=== PATIENT | female | born 1935 | race Caucasian/White ===

== ENCOUNTER 2016-04-24 00:10 | Inpatient (IN) | payer MEDICARE, BC ==
[~2016-04-24] VITALS: Ht 167.6 cm; Wt 43.7 kg
[2016-04-24] VITALS (27 sets, daily range): BP systolic 78–227; BP diastolic 46–128; PULSE 71–147; RESP 14–22; TEMP 97.8–98.2; O2SAT 95–100
[2016-04-24] MEDS ORDERED: SODIUM CHLOR 0.9% 1000 ML INJ 1,000 ML IV ONE ×3 (00:19→06:15)
--- NOTE | 2016-04-24 00:32 | PD ---
HPI Chief Complaint: Altered Mental Status Time Seen by Provider: 00:19 Travel History International Travel<30 days: No Contact w/Intl Traveler<30days: No Traveled to known affect area: No History of Present Illness HPI The patient is a 81-year-old female who presents to the emergency department with family for possible stroke. The patient to sleep at 8:30 PM, was normal per family. However, the patient awakened at 11:45 PM it was noted to have "babbling speech ", weakness on the right side, difficulty ambulating, with apparent difficulty in understanding as well. The patient does have a history of TIAs but only takes an aspirin per day. Upon arrival the patient is unable to speak, will follow some simple commands, but is unable to tell me her name, date of , or current location. She will follow commands, has obvious facial droop on the right with drift of the right upper extremity and right lower extremity. She was unable to answer questions correctly. Stroke scale was 12. Patient is not a candidate for IV TPA in the 3 hour window and will not be a candidate for TPA and afford a half hour window secondary to 5 hour timeframe, however, may be a candidate for interventional radiology at the 6 hour window. Therefore, stroke alert was called. 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) : 5 Para: 5 Past Surgical History Cholecystectomy: Yes Gynecologic Surgery: Yes (partial hysterectomy) Oral Surgery: Yes (maligancy removed from face) Other Surgery: Yes (right carotid endarectomy) Social History Alcohol Use: No Tobacco Use: No Substance Use: No Allergies-Medications (Allergen,Severity, Reaction): Coded Allergies: Cardizem (Verified Allergy, Severe, 03/01/16) Ceftin (Verified Allergy, Severe, Rash, 03/01/16) Tequin (Verified Allergy, Severe, 04/24/16) Codeine (Verified Allergy, Intermediate, Rash, 03/01/16) Lasix (Verified Allergy, Intermediate, Rash, 03/01/16) Librium (Verified Allergy, Intermediate, Rash, 03/01/16) Lomotil (Verified Allergy, Intermediate, Rash, 03/01/16) Norvasc (Verified Allergy, Intermediate, Rash, 03/01/16) Persantine (Verified Allergy, Intermediate, Rash, 03/01/16) Stadol (Verified Allergy, Intermediate, Rash, 03/01/16) Sulfa (Verified Allergy, Intermediate, Rash, 03/01/16) Zithromax (Verified Allergy, Intermediate, Rash, 03/01/16) Augmentin (Verified Allergy, Unknown, Rash, 03/01/16) Cardura (Verified Allergy, Unknown, Rash, 03/01/16) Pravachol (Verified Allergy, Unknown, Rash, 03/01/16) Reported Meds & Prescriptions Reported Meds & Active Scripts Active No Active Prescriptions or Reported Medications Review of Systems ROS Limitations: Clinical Condition, Other: (history obtained from family) Neurologic: Positive: Focal Abnormalities, Change in Mentation, Slurred Speech Physical Exam Narrative GENERAL: Awake, alert, 81-year-old female who is unable to tell me her name or date of . SKIN: Warm and dry. HEAD: Atraumatic. Normocephalic. EYES: Pupils equal and round. Pupils are 3 mm bilateral and reactive. EOMs are intact. ENT: No nasal bleeding or discharge. Mucous membranes pink and moist. NECK: Trachea midline. No JVD. CARDIOVASCULAR: Regular rate and rhythm. No murmur appreciated. RESPIRATORY: No accessory muscle use. Clear to auscultation. Breath sounds equal bilaterally. GASTROINTESTINAL: Abdomen soft, non-tender, nondistended. No rebound tenderness. MUSCULOSKELETAL: No obvious deformities. No clubbing. No cyanosis. No edema. NEUROLOGICAL: Awake and alert. Facial droop to the right with smiling. Drift of the right upper extremity and right lower extremity, arm falls to bed and leg falls to bed. Patient is mostly aphasic except for saying yes, at times appears to have receptive aphasia. Sensation appears to be symmetric bilaterally to soft touch on the face, arms, and legs. PSYCHIATRIC: Unable to assess. Data Data Last Documented VS Vital Signs Date Time Temp Pulse Resp B/P Pulse Ox O2 Delivery O2 Flow Rate FiO2 04/24/16 01:11 96 18 138/62 97 Room Air 04/24/16 00:16 97.8 Orders Diet Npo (04/24/16 Breakfast) Activity Bed Rest (04/24/16 ) Electrocardiogram (04/24/16 ) I-Stat Creatinine (04/24/16 00:19) I-Stat Profile (04/24/16 00:19) Prothrombin Time / Inr (Pt) (04/24/16 00:19) Act Partial Throm Time (Ptt) (04/24/16 00:19) Complete Blood Count With Diff (04/24/16 00:19) Fibrinogen (04/24/16 00:19) Creatine Kinase (Cpk) (04/24/16 00:19) Troponin I (04/24/16 00:19) Ua Includes Microscopic (04/24/16 00:19) Drug Screen, Random Urine (04/24/16 00:19) Type And Screen (04/24/16 00:19) Ct Brain W/O Iv Contrast(Rout) (04/24/16 ) Consult Neurology (04/24/16 ) Blood Glucose (04/24/16 00:19) Ecg Monitoring (04/24/16 00:19) Neuro Checks Q2HX12,Q4H (04/24/16 00:19) Nursing Bedside Swallow Assess .ONCE (04/24/16 00:19) Iv Access Insert/Monitor (04/24/16 00:19) NPO (04/24/16 00:19) Oximetry (04/24/16 00:19) Oxygen Administration (04/24/16 00:19) Sodium Chlor 0.9% 1000 Ml Inj (Ns 1000 M (04/24/16 00:19) Resp Oxygen Mario C Titrat 1-4 L (04/24/16 00:19) Cath For Specimen (04/24/16 00:19) Cta Brain W Iv Contrast W 3d (04/24/16 ) Cta Neck W Iv Contrast W 3d (04/24/16 ) Lorazepam Inj (Ativan Inj) (04/24/16 00:33) (Hub Use Only)Inp Phy Cons/Ref (04/24/16 ) Iohexol 350 Inj (Omnipaque 350 Inj) (04/24/16 00:44) Diltiazem Inj (Cardizem Inj) (04/24/16 00:51) Metoprolol Tartrate Inj (Lopressor Inj) (04/24/16 01:00) Esmolol Drip Inj Premix (Brevibloc Drip (04/24/16 01:00) Aspirin Supp (Aspirin Supp) (04/24/16 01:15) Labs Laboratory Tests Test 04/24/16 04/24/16 00:02 00:22 White Blood Count 7.1 TH/MM3 Red Blood Count 4.24 MIL/MM3 Hemoglobin 12.8 GM/DL Hematocrit 38.6 % Mean Corpuscular Volume 91.1 FL Mean Corpuscular Hemoglobin 30.3 PG Mean Corpuscular Hemoglobin 33.2 % Concent Red Cell Distribution Width 13.2 % Platelet Count 327 TH/MM3 Mean Platelet Volume 7.2 FL Neutrophils (%) (Auto) 51.7 % Lymphocytes (%) (Auto) 39.2 % Monocytes (%) (Auto) 6.9 % Eosinophils (%) (Auto) 1.3 % Basophils (%) (Auto) 0.9 % Neutrophils # (Auto) 3.7 TH/MM3 Lymphocytes # (Auto) 2.8 TH/MM3 Monocytes # (Auto) 0.5 TH/MM3 Eosinophils # (Auto) 0.1 TH/MM3 Basophils # (Auto) 0.1 TH/MM3 CBC Comment DIFF FINAL Differential Comment Prothrombin Time 10.0 SEC Prothromb Time International 0.9 RATIO Ratio Activated Partial 25.3 SEC Thromboplast Time Fibrinogen 385 mg/dL Bedside Hemoglobin 14.3 G/DL Bedside Hematocrit 42.0 % Bedside Sodium 137 MMOL/L Bedside Potassium 3.8 MMOL/L Bedside Chloride 95 MMOL/L Bedside Blood Urea Nitrogen 5 MG/DL Bedside Creatinine 0.8 MG/DL Bedside Glucose 168 MG/DL Total Creatine Kinase 59 U/L Troponin I LESS THAN 0.02 NG/ML [facility] Medical Screen Exam Complete: Yes Emergency Medical Condition: Yes Medical Record Reviewed: Yes Differential Diagnosis Differential diagnosis includes CVA, TIA, intracranial hemorrhage, encephalitis , delirium, UTI, hyponatremia. Narrative Course Stroke alert was called. IV was established, labs are drawn and sent, and the patient was placed on gas engine performance engineer monitoring and continuous pulse oximetry monitoring. I discussed the patient with Dr. Hamilton, the on-call neurologist, who agrees the patient is not a candidate for TPA Jessie douglass, but it may be a candidate for IR. Therefore, CTA of the neck and brain were obtained. CT the brain was negative, therefore, patient was administered aspirin. Patient also had a chief ablation with RVR, rate in the 140s, therefore, patient was administered Lopressor because she was allergic to Cardizem and placed on an esmolol drip. CTA of the head and neck were noted, do not believe patient is a candidate for acute interventional radiology evaluation. The patient did have a run of atrial fibrillation with RVR in the emergency department, A. fib may be a cause of the patient's CVA. I had a discussion with the neurologist, Dr. Hamilton, in regards to possible heparin drip. He would prefer to wait for echocardiogram prior to place the patient on heparin or further anticoagulation. The patient will be admitted to the medical service, will go to [facility] on an esmolol drip. Critical Care Narrative Aggregate critical care time was 20 minutes. Time to perform other separately billable procedures was not included in the critical care time. My time did not include minutes spent treating any other patients simultaneously or on activities that did not directly contribute to the patient's treatment. The services I provided to this patient were to treat and/or prevent clinically significant deterioration that could result in: Anoxia, hypoxia, arrhythmia, aspiration, . I provided critical care services requiring my management, as noted below: Chart data review, documentation time, medication orders and management, vital sign assessments/reviewing monitor data, ordering and reviewing lab tests, ordering and interpreting/reviewing x-rays and diagnostic studies, care of the patient and discussion of the patient with the admitting physicians. Stroke Alert NIHSS NIH Stroke Scale Result: 12 NIHSS Time Completed: 00:16 Thrombolytic Contraindications Contraindications Comment: Patient is not a candidate for initial TPA as the window is 3 hours and 4/2 hours, patient presents just over 4/2 hours from last seen normal. However, possibly candidate for IR intervention, therefore, stroke alert was called. CTA, no indication for IR. Patient was provided aspirin. Procedures Interpretation(s) I-STAT reveals sodium 137, potassium 3.8, chloride 95, BUN 5, glucose 168, hemoglobin 14.3, hematocrit 42%, creatinine 0.8 EKG reveals atrial fibrillation with RVR, rate 146. CTA carotids reveals 50% stenosis at the origin of the left common carotid artery from the arch. Not mentioned above his multinodular goiter with largest nodule on the right measuring 1.3 cm in size. CTA of the head reveals slight atherosclerotic changes of distal branches bilaterally, otherwise unremarkable. Laboratory Tests Test 04/24/16 04/24/16 00:02 00:22 White Blood Count 7.1 TH/MM3 Red Blood Count 4.24 MIL/MM3 Hemoglobin 12.8 GM/DL Hematocrit 38.6 % Mean Corpuscular Volume 91.1 FL Mean Corpuscular Hemoglobin 30.3 PG Mean Corpuscular Hemoglobin 33.2 % Concent Red Cell Distribution Width 13.2 % Platelet Count 327 TH/MM3 Mean Platelet Volume 7.2 FL Neutrophils (%) (Auto) 51.7 % Lymphocytes (%) (Auto) 39.2 % Monocytes (%) (Auto) 6.9 % Eosinophils (%) (Auto) 1.3 % Basophils (%) (Auto) 0.9 % Neutrophils # (Auto) 3.7 TH/MM3 Lymphocytes # (Auto) 2.8 TH/MM3 Monocytes # (Auto) 0.5 TH/MM3 Eosinophils # (Auto) 0.1 TH/MM3 Basophils # (Auto) 0.1 TH/MM3 CBC Comment DIFF FINAL Differential Comment Prothrombin Time 10.0 SEC Prothromb Time International 0.9 RATIO Ratio Activated Partial 25.3 SEC Thromboplast Time Fibrinogen 385 mg/dL Bedside Hemoglobin 14.3 G/DL Bedside Hematocrit 42.0 % Bedside Sodium 137 MMOL/L Bedside Potassium 3.8 MMOL/L Bedside Chloride 95 MMOL/L Bedside Blood Urea Nitrogen 5 MG/DL Bedside Creatinine 0.8 MG/DL Bedside Glucose 168 MG/DL Total Creatine Kinase 59 U/L Troponin I LESS THAN 0.02 NG/ML Last Impressions Head CTA 04/24/16 0000 Signed Impressions: Service Date/Time: Sunday, April 24, 2016 00:33 - CONCLUSION: Slight atherosclerotic changes of distal branches bilaterally, otherwise unremarkable. Avni Hurst MD Head CT 04/24/16 0000 Signed Impressions: Service Date/Time: Sunday, April 24, 2016 00:22 - CONCLUSION: 1. No change in right posterior fossa CPA mass possibly a large meningioma. 2. Chronic and small vessel ischemic changes without any evidence for acute hemorrhage or mass effect. Avni Hurst MD Physician Communication Physician Communication The on-call medical service was paged for admission. I discussed the patient with Dr. Vidal who agrees with admission. Diagnosis Diagnosis: Primary Impression: CVA (cerebral vascular accident) Qualified Code: I63.9 - Cerebrovascular accident (CVA), unspecified mechanism Additional Impression: Atrial fibrillation with RVR Admitting Physician Requests: Admit Scripts No Active Prescriptions or Reported Meds Condition: Stable Mike August MD Apr 24, 2016 00:31
[2016-04-24] MEDS ORDERED: LORazepam 2 MG/ML VIAL ONE (00:33)
[2016-04-24 00:39] LABS: I-STAT SODIUM 137 MMOL/L (138-146)
--- NOTE | 2016-04-24 00:39 | RADRPT ---
EXAM DATE/TIME: 04/24/2016 00:22 [facility] COMPARISON: CT BRAIN W/O CONTRAST, March 01, 2016, 7:35. INDICATIONS : Stroke alert; right sided weakness and slurred speech. RADIATION DOSE: 56.35 CTDIvol (mGy) This report was called by myself to Dr. Monroe at 12: 35 hours. MEDICAL HISTORY : Non-responsive. SURGICAL HISTORY : Non-responsive. ENCOUNTER: Initial ACUITY: 1 day PAIN SCALE: Non-responsive LOCATION: cranial TECHNIQUE: Multiple contiguous axial images were obtained of the head. Using automated exposure control and adj ustment of the mA and/or kV according to patient size, radiation dose was kept as low as reasonably a chievable to obtain optimal diagnostic quality images. FINDINGS: Again noted is a mass in the right CP angle measuring almost 3.3 cm in size with slight mass effect o n the fourth ventricle not changed. There is chronic mucoperiosteal thickening within the right maxil kady sinus. The visualized bony structures appear intact. Moderate degree of brain atrophy is seen. Moderate periventricular white matter changes are seen nonspecific mostly consistent with chronic sma ll vessel ischemic changes. There are no signs of acute infarction for technique. CONCLUSION: 1. No change in right posterior fossa CPA mass possibly a large meningioma. 2. Chronic and small vessel ischemic changes without any evidence for acute hemorrhage or mass effect . Avni Hurst MD on April 24, 2016 at 0:33 Board Certified Radiologist. This report was verified electronically.
[2016-04-24 00:40] LABS: I-STAT POTASSIUM 3.8 MMOL/L (3.5-4.9)
[2016-04-24 00:41] LABS: AUTOMATED NEUTROPHIL # 3.7 TH/MM3 (1.8-7.7); BASOPHIL # 0.1 TH/MM3 (0-0.2); BASOPHIL % 0.9 % (0.0-2.0); EOSINOPHIL # 0.1 TH/MM3 (0-0.4); EOSINOPHIL % 1.3 % (0.0-4.0); HEMATOCRIT 38.6 % (35.0-46.0); HEMO FLAGS DIFF FINAL; LYMPH % 39.2 % (9.0-44.0); LYMPHOCYTE # 2.8 TH/MM3 (1.0-4.8); MEAN CELL VOLUME 91.1 FL (80.0-100.0); MEAN CORPUSCULAR HEMOGLOBIN 30.3 PG (27.0-34.0); MEAN CORPUSCULAR HGB CONC 33.2 % (32.0-36.0); MONO % 6.9 % (0.0-8.0); NEUT % 51.7 % (16.0-70.0); PLATELET COUNT 327 TH/MM3 (150-450); RED BLOOD COUNT 4.24 MIL/MM3 (4.00-5.30); RED CELL DISTRIBUTION WIDTH 13.2 % (11.6-17.2); WHITE BLOOD COUNT 7.1 TH/MM3 (4.0-11.0)
[2016-04-24] MEDS ORDERED: IOHEXOL 350 MG/ML 10 ML VIAL (for RAD DIAG) IV ONE (00:44)
[2016-04-24 00:47] LABS: APTT (PATIENT) 25.3 SEC (24.3-30.1); INTERNATIONAL NORMALIZED RATIO 0.9 RATIO
[2016-04-24] MEDS ORDERED: DILTIAZEM HCL 25 MG/5 ML VIAL ONE (00:51)
[2016-04-24 01:00] LABS: CREATINE KINASE 59 U/L (26-192)
[2016-04-24] MEDS ORDERED: METOPROLOL TARTRATE 5 MG/5 ML VIAL IV PUSH ONE (01:00)
[2016-04-24] MEDS ORDERED: ESMOLOL DRIP INJ PREMIX 250 ML IV SCH (01:00)
--- NOTE | 2016-04-24 01:10 | RADRPT ---
EXAM DATE/TIME: 04/24/2016 00:33 [facility] COMPARISON: CT BRAIN W/O CONTRAST, April 24, 2016, 0:22. INDICATIONS : Stroke alert, right sided weakness and slurred speech. IV CONTRAST: 67 cc Omnipaque 350 (iohexol) IV ; Cumulative dose for multiple exams. RADIATION DOSE: 14.49 CTDIvol (mGy) ; Combined studies MEDICAL HISTORY : Non-responsive. SURGICAL HISTORY : Non-responsive. ENCOUNTER: Initial ACUITY: 1 day PAIN SCALE: Non-responsive LOCATION: cranial TECHNIQUE: Volumetric scanning was performed using a multi-row detector CT scanner. The data was post processed with a variety of visualization algorithms including full volume maximum intensity projection, multi -planar sliding thin slab reformation, curved planar reformation, and surface rendering techniques. Using automated exposure control and adjustment of the mA and/or kV according to patient size, radiat ion dose was kept as low as reasonably achievable to obtain optimal diagnostic quality images. FINDINGS: No significant vascular malformations, vessel truncation or aneurysmal dilatations are seen except fo r slight atherosclerotic changes involving multiple branches bilaterally mainly the MCAs. CONCLUSION: Slight atherosclerotic changes of distal branches bilaterally, otherwise unremarkable . Avni Hurst MD on April 24, 2016 at 1:06 Board Certified Radiologist. This report was verified electronically.
--- NOTE | 2016-04-24 01:12 | RADRPT ---
EXAM DATE/TIME: 04/24/2016 00:33 [facility] COMPARISON: CTA BRAIN W 3D RECON, April 24, 2016, 0:33. CT BRAIN W/O CONTRAST, April 24, 2016, 0:22. INDICATIONS : Stroke alert, right sided weakness and slurred speech. IV CONTRAST: 67 cc Omnipaque 350 (iohexol) IV ; Cumulative dose for multiple exams. RADIATION DOSE: 14.49 CTDIvol (mGy) ; Combined studies MEDICAL HISTORY : Non-responsive. SURGICAL HISTORY : Non-responsive. ENCOUNTER: Initial ACUITY: 1 day PAIN SCALE: Non-responsive LOCATION: neck TECHNIQUE: Volumetric scanning was performed using a multirow detector CT scanner. The data was post processed with a variety of visualization algorithms including full-volume maximum intensity projection, multip lanar sliding thin-slab reformation, curved-planar reformation, and surface-rendering techniques. Us ing automated exposure control and adjustment of the mA and/or kV according to patient size, radiatio n dose was kept as low as reasonably achievable to obtain optimal diagnostic quality images. FINDINGS: AORTIC ARCH: There is approximate 50% stenosis at the origin of the left common carotid artery from the arch. The other major vessels are patent. RIGHT CAROTID: There is mild atherosclerotic plaquing without any significant stenosis. LEFT CAROTID: There is mild atherosclerotic plaquing without any significant stenosis. VERTEBRALS: The vertebral arteries have a symmetric diameter. No stenotic lesions are seen. CONCLUSION: 50% stenosis at the origin of the left common carotid artery from the arch. Not mentioned above is mu ltinodular goiter with largest nodule on the right measuring 1.3 cm in size. Avni Hurst MD on April 24, 2016 at 1:09 Board Certified Radiologist. This report was verified electronically.
[2016-04-24] MEDS ORDERED: ASPIRIN 300 MG SUPP RECTAL ONE (01:15)
[2016-04-24 01:45] LABS: BLOOD, URINE NEG (NEG); GLUCOSE,URINE NEG (NEG); KETONE, URINE NEG (NEG); NITRITE,URINE NEG (NEG); SQUAMOUS EPITHELIAL CELL URINE <1 /hpf (0-5); URINE COLOR YELLOW (YELLW/STRAW)
[2016-04-24 01:51] LABS: AMPHETAMINE, URINE NEG (NEG); BARBITURATES, URINE NEG (NEG); COCAINE, URINE NEG (NEG)
[2016-04-24] MEDS ORDERED: methylPREDNISolone SOD SUCC 125 MG/2 ML VIAL ONE (02:01)
[2016-04-24] MEDS ORDERED: EPINEPHrine HCL (1:10,000) 1 MG/10 ML SYRINGE ONE (02:01)
[2016-04-24] MEDS ORDERED: diphenhydrAMINE HCL 50 MG/ML VIAL ONE (02:01)
[2016-04-24] MEDS ORDERED: EPINEPHrine HCL (1:1000) 1 MG/ML VIAL ONE (02:02)
[2016-04-24] MEDS ORDERED: SODIUM CHLOR 0.9% 1000 ML INJ 1,000 ML IV SCH ×3 (02:38→09:00)
--- NOTE | 2016-04-24 02:38 | HHI.HP ---
[facility] Service [facility] Primary Care Physician Veto Ruth M.D. Admission Diagnosis CVA, atrial fibrillation with RVR, aphasia Diagnoses: Chief Complaint: Aphasia. RIght sided weakness Travel History International Travel<30 Days: No Contact w/Intl Traveler <30 Da: No Traveled to Known Affected Are: No History of Present Illness 81-year-old female brought into the emergency room with concern for stroke. The patient's son report that she woke up with babbling speech, weakness on the right side and difficulty ambulating. On arrival to the emergency room the patient has obvious facial droop, expressive aphasia, right upper and lower extremity drift, unable to answer questions. Patient was given metoprolol and Ativan. I was notified by the nurse that she was having allergic reaction with tongue swelling. She was immediately given Solu-Medrol and Benadryl. On my evaluation, the patient is aphasic, she does not follow commands and appears agitated, able to move the left extremities more so than the right. She has mild tongue swelling. I reviewed the history with the patient's son. The patient has a posterior fossa mass that was diagnosed here 2 months ago and was recommended outpatient follow-up in neurosurgery. The patient's son reports that they did not follow-up as they would not proceed with any neurological surgery. The patient's son reports that she has been living with them over the past 3 months. She has had some falls but otherwise has been mentally sharp. She was able to ambulate short distances. The patient's son reports that she has not been taking any medications for the past few months. Review of Systems ROS Limitations: Clinical Condition, Altered Mental Status Endocrine: COMPLAINS OF: Polyuria Other Unable to obtain complete review of systems secondary to the patient's condition. Past Family Social History Past Medical History Diabetes Questionable dementia. Son reports she has been having intermittent problems with her memory. Past Surgical History partial hysterectomy Appendectomy malignancy removed from face right carotid endarterectomy Reported Medications Reported Meds & Active Scripts Active No Active Prescriptions or Reported Medications Allergies: Coded Allergies: Ativan (Verified Allergy, Severe, 04/24/16) Cardizem (Verified Allergy, Severe, 03/01/16) Ceftin (Verified Allergy, Severe, Rash, 03/01/16) Tequin (Verified Allergy, Severe, 04/24/16) Codeine (Verified Allergy, Intermediate, Rash, 03/01/16) Lasix (Verified Allergy, Intermediate, Rash, 03/01/16) Librium (Verified Allergy, Intermediate, Rash, 03/01/16) Lomotil (Verified Allergy, Intermediate, Rash, 03/01/16) Norvasc (Verified Allergy, Intermediate, Rash, 03/01/16) Persantine (Verified Allergy, Intermediate, Rash, 03/01/16) Stadol (Verified Allergy, Intermediate, Rash, 03/01/16) Sulfa (Verified Allergy, Intermediate, Rash, 03/01/16) Zithromax (Verified Allergy, Intermediate, Rash, 03/01/16) Augmentin (Verified Allergy, Unknown, Rash, 03/01/16) Cardura (Verified Allergy, Unknown, Rash, 03/01/16) Pravachol (Verified Allergy, Unknown, Rash, 03/01/16) Family History Patient's mother from complication of strokes. Social History No alcohol, tobacco, or illicit drug use. Physical Exam Vital Signs Vital Signs Date Time Temp Pulse Resp B/P Pulse Ox O2 Delivery O2 Flow Rate FiO2 04/24/16 02:24 113 22 159/80 99 Room Air 04/24/16 02:19 121 22 177/86 99 Nasal Cannula 2 04/24/16 02:14 128 18 182/110 99 Nasal Cannula 2 04/24/16 02:00 147 22 227/128 98 Nasal Cannula 2 04/24/16 01:11 96 18 138/62 97 Room Air 04/24/16 01:07 98 18 177/97 96 Room Air 04/24/16 00:40 146 18 185/99 97 Room Air 04/24/16 00:30 138 18 185/75 99 Room Air 04/24/16 00:20 127 20 200/100 99 Room Air 04/24/16 00:16 97 Room Air 04/24/16 00:16 97.8 123 22 180/80 96 04/24/16 00:16 97 Nasal Cannula Physical Exam GENERAL: Elderly female, somewhat agitated. Does not follow commands. SKIN: No rashes, ecchymoses or lesions. Cool and dry. HEAD: Atraumatic. Normocephalic. EYES: Pupils equal round and reactive. ENT: Nose without drainage. Tongue with mild swelling NECK: Trachea midline. No JVD or lymphadenopathy. CARDIOVASCULAR: Heart rate 115. Regular rhythm without murmurs, gallops, or rubs. RESPIRATORY: Clear to auscultation. Breath sounds equal bilaterally. No wheezes , rales, or rhonchi. GASTROINTESTINAL: Abdomen soft, nondistended. No guarding. MUSCULOSKELETAL: Extremities without clubbing, cyanosis, or edema. NEUROLOGICAL: Obtunded. At times agitated. Eyes open but does not track. Right facial droop. Can move all extremities but more weak on the right. Laboratory Laboratory Tests Test 04/24/16 04/24/16 04/24/16 04/24/16 00:02 00:22 01:00 01:21 White Blood Count 7.1 Red Blood Count 4.24 Hemoglobin 12.8 Hematocrit 38.6 Mean Corpuscular Volume 91.1 Mean Corpuscular Hemoglobin 30.3 Mean Corpuscular Hemoglobin 33.2 Concent Red Cell Distribution Width 13.2 Platelet Count 327 Mean Platelet Volume 7.2 Neutrophils (%) (Auto) 51.7 Lymphocytes (%) (Auto) 39.2 Monocytes (%) (Auto) 6.9 Eosinophils (%) (Auto) 1.3 Basophils (%) (Auto) 0.9 Neutrophils # (Auto) 3.7 Lymphocytes # (Auto) 2.8 Monocytes # (Auto) 0.5 Eosinophils # (Auto) 0.1 Basophils # (Auto) 0.1 CBC Comment DIFF FINAL Differential Comment Prothrombin Time 10.0 Prothromb Time International 0.9 Ratio Activated Partial 25.3 Thromboplast Time Fibrinogen 385 Bedside Hemoglobin 14.3 Bedside Hematocrit 42.0 Bedside Sodium 137 Bedside Potassium 3.8 Bedside Chloride 95 Bedside Blood Urea Nitrogen 5 Bedside Creatinine 0.8 Bedside Glucose 168 Total Creatine Kinase 59 Troponin I LESS THAN 0.02 Blood Type O POSITIVE Antibody Screen NEGATIVE Blood Bank Comment Urine Color YELLOW Urine Turbidity CLEAR Urine pH 7.0 Urine Specific [place] 1.007 Urine Protein NEG Urine Glucose (UA) NEG Urine Ketones NEG Urine Occult Blood NEG Urine Nitrite NEG Urine Bilirubin NEG Urine Urobilinogen LESS THAN 2.0 Urine Leukocyte Esterase SMALL Urine RBC 1 Urine WBC 14 Urine Squamous Epithelial <1 Cells Microscopic Urinalysis Comment Urine Opiates Screen NEG Urine Barbiturates Screen NEG Urine Amphetamines Screen NEG Urine Benzodiazepines Screen NEG Urine Cocaine Screen NEG Urine Cannabinoids Screen NEG Result Diagram: 04/24/16 0002 Imaging Last Impressions Neck CTA 04/24/16 0000 Signed Impressions: Service Date/Time: Sunday, April 24, 2016 00:33 - CONCLUSION: 50%% stenosis at the origin of the left common carotid artery from the arch. Not mentioned above is multinodular goiter with largest nodule on the right measuring 1.3 cm in size. Avni Hurst MD Head CTA 04/24/16 0000 Signed Impressions: Service Date/Time: Sunday, April 24, 2016 00:33 - CONCLUSION: Slight atherosclerotic changes of distal branches bilaterally, otherwise unremarkable. Avni Hurst MD Head CT 04/24/16 0000 Signed Impressions: Service Date/Time: Sunday, April 24, 2016 00:22 - CONCLUSION: 1. No change in right posterior fossa CPA mass possibly a large meningioma. 2. Chronic and small vessel ischemic changes without any evidence for acute hemorrhage or mass effect. Avni Hurst MD Assessment and Plan Problem List: (1) CVA (cerebral vascular accident) ICD Code: I63.9 Status: Acute (2) Atrial fibrillation with RVR ICD Code: I48.91 Status: Acute (3) Dehydration ICD Code: E86.0 Status: Acute (4) Diabetes ICD Code: E11.9 Status: Acute Assessment and Plan 81-year-old female with: CVA: Patient presented with aphasia, right facial droop and right sided weakness. So far head CT shows a posterior fossa mass that is unchanged compared to February. Chronic and small vessel ischemic changes. Neck CTA with 50% stenosis at the origin of the left common carotid artery. Multinodular goiter. - Patient with known history of A. fib. Not on any medications. - Neurology has been consulted from the ED as a stroke alert. Advised holding off on anticoagulation. She was given a dose of aspirin. - MRI ordered. Permissive hypertension. - PT/OT. Appreciate further input from Neurology. - Regarding the posterior fossa mass. I offered the family consultation with neurosurgery but they refused as they would not proceed with any neurosurgical procedures. Tachycardia and markedly elevated BP: Heart rate in the 140s and blood pressure 227/128. The patient initially received metoprolol and Ativan but had an allergic reaction with tongue swelling. She was started on an asthma all drip which was quickly weaned off because her blood pressure started to come down. - Labetalol IV as needed for blood pressure greater than 220/100 and heart rate greater than 120. H/O Afib: - Currently in sinus rhythm but will eventually need a rate control medication given history of A. fib if family agree. Type 2 diabetes: Start sliding scale insulin with Accu-Cheks. GI prophylaxis: Stool softener PRN constipation. DVT PPx: SCDs Discussed Condition With Dr. August Physician Certification 2 Midnight Certification Type: Admission for Inpatient Services Order for Inpatient Services The services are ordered in accordance with Medicare regulations or non- Medicare payer requirements, as applicable. In the case of services not specified as inpatient-only, they are appropriately provided as inpatient services in accordance with the 2-midnight benchmark. Estimated LOS (days): 3 days is the estimated time the patient will need to remain in the hospital, assuming treatment plan goals are met and no additional complications. Post-Hospital Plan: Not yet determined Problem Qualifiers (1) CVA (cerebral vascular accident): Qualified Code: I63.9 - Cerebrovascular accident (CVA), unspecified mechanism Jim Vidal MD Apr 24, 2016 02:38
[2016-04-24] MEDS ORDERED: DEXTROSE 50% IN WATER 50 ML VIAL(D50) IV PUSH PRN (02:45)
[2016-04-24] MEDS ORDERED: LABETALOL HCL 100 MG/20 ML VIAL IV PRN (02:45)
[2016-04-24] MEDS ORDERED: SODIUM CHLORIDE 0.9% FLUSH 5 ML FLUSH IVF PRN (02:45)
[2016-04-24] MEDS ORDERED: GLUCAGON 1 MG/ML VIAL IM/SQ PRN (02:45)
[2016-04-24] MEDS ORDERED: AMIODARONE 450 MG/D5W (EXCEL) 241 ML IV SCH ×2 (04:30)
[2016-04-24] MEDS ORDERED: AMIODARONE 150 MG/D5W 97 ML BOLUS 10 MINUTES IV ONE ×2 (04:30)
[2016-04-24] MEDS ORDERED: HALOPERIDOL LACTATE 5 MG/ML AMP IM PRN (05:15)
--- NOTE | 2016-04-24 05:56 | PD.CONS ---
HPI Service Critical Care Medicine Consult Requested By Reason for Consult Rapid A. Fib Primary Care Physician Veto Ruth M.D. History of Present Illness 81-year-old female woke up with babbling speech, weakness on the right side and difficulty ambulating. On arrival to the emergency room the patient has obvious facial droop, expressive aphasia, right upper and lower extremity drift , unable to answer questions. Patient was given metoprolol and Ativan. The patient has a posterior fossa mass that was diagnosed here 2 months ago and was recommended outpatient follow-up. She did not follow up and per chart and son reports they did not follow-up as they would not proceed with any neurological surgery. CCM was consulted for rapid A. Fib with RVR. Review of Systems ROS Unable to obtain due to altered mental state Past Family Social History Allergies: Coded Allergies: Ativan (Verified Allergy, Severe, 04/24/16) Cardizem (Verified Allergy, Severe, 03/01/16) Ceftin (Verified Allergy, Severe, Rash, 03/01/16) Tequin (Verified Allergy, Severe, 04/24/16) Codeine (Verified Allergy, Intermediate, Rash, 03/01/16) Lasix (Verified Allergy, Intermediate, Rash, 03/01/16) Librium (Verified Allergy, Intermediate, Rash, 03/01/16) Lomotil (Verified Allergy, Intermediate, Rash, 03/01/16) Norvasc (Verified Allergy, Intermediate, Rash, 03/01/16) Persantine (Verified Allergy, Intermediate, Rash, 03/01/16) Stadol (Verified Allergy, Intermediate, Rash, 03/01/16) Sulfa (Verified Allergy, Intermediate, Rash, 03/01/16) Zithromax (Verified Allergy, Intermediate, Rash, 03/01/16) Augmentin (Verified Allergy, Unknown, Rash, 03/01/16) Cardura (Verified Allergy, Unknown, Rash, 03/01/16) Pravachol (Verified Allergy, Unknown, Rash, 03/01/16) Past Medical History Diabetes Intermittent problems with her memory Past Surgical History Partial hysterectomy Appendectomy Malignancy removed from face Reported Medications Current Medications Medications (Trade) Dose Ordered Sig/Naomie Route PRN Reason Start Time Stop Time Status Last Admin Dose Admin Esmolol HCl/ Sodium Chloride (Brevibloc Drip Inj Premix) 250 ml @ 0 mls/hr TITRATE IV 04/24/16 01:00 04/24/16 02:12 IV Flush (NS Flush) 2 ml BID IVF 04/24/16 09:00 IV Flush 2 ml 2 ml UNSCH PRN IVF FLUSH AFTER USING IV ACCESS 04/24/16 02:45 Sodium Chloride (NS 1000 ml Inj) 1,000 ml @ 70 mls/hr [id number] IV 04/24/16 02:38 04/24/16 02:38 Labetalol HCl (Trandate Inj) 10 mg Q2H PRN IV For SBP > 220 or DBP > 120 04/24/16 02:45 04/24/16 04:02 Dextrose (D50w (Vial) Inj) 25 ml UNSCH PRN IV PUSH HYPOGLYCEMIA-SEE COMMENTS 04/24/16 02:45 Glucagon 1 mg 1 mg UNSCH PRN IM/SQ HYPOGLYCEMIA-SEE COMMENTS 04/24/16 02:45 Amiodarone HCl/ Dextrose (Cordarone Inj/ D5W ([place]) Inj) 250 ml @ 0 mls/hr CONTINUOUS IV 04/24/16 04:30 Haloperidol Lactate (Haldol Inj) 1 mg Q6H PRN IM AGITATION 04/24/16 05:15 04/24/16 05:14 Family History Patient's mother from complication of strokes. Social History No alcohol, tobacco, or illicit drug use. Physical Exam Vital Signs Vital Signs Date Time Temp Pulse Resp B/P Pulse Ox O2 Delivery O2 Flow Rate FiO2 04/24/16 04:06 141 18 165/95 99 Room Air 04/24/16 03:51 99 Nasal Cannula 3.00 04/24/16 03:02 120 20 178/90 99 Nasal Cannula 2 04/24/16 02:24 113 22 159/80 99 Room Air 04/24/16 02:19 121 22 177/86 99 Nasal Cannula 2 04/24/16 02:14 128 18 182/110 99 Nasal Cannula 2 04/24/16 02:00 147 22 227/128 98 Nasal Cannula 2 04/24/16 01:11 96 18 138/62 97 Room Air 04/24/16 01:07 98 18 177/97 96 Room Air 04/24/16 00:40 146 18 185/99 97 Room Air 04/24/16 00:30 138 18 185/75 99 Room Air 04/24/16 00:20 127 20 200/100 99 Room Air 04/24/16 00:16 97 Room Air 04/24/16 00:16 97.8 123 22 180/80 96 04/24/16 00:16 97 Nasal Cannula Physical Exam GENERAL: Elderly patient, confused, nonverbal SKIN: Warm and dry. HEAD: Normocephalic. EYES: No scleral icterus. No injection or drainage. NECK: Supple, trachea midline. No JVD or lymphadenopathy. CARDIOVASCULAR: Regular rate and rhythm without murmurs, gallops, or rubs. RESPIRATORY: Breath sounds equal bilaterally. No accessory muscle use. GASTROINTESTINAL: Abdomen soft, non-tender, nondistended. MUSCULOSKELETAL: No cyanosis, or edema. BACK: Nontender without obvious deformity. No CVA tenderness. Laboratory Laboratory Tests Test 04/24/16 04/24/16 04/24/16 04/24/16 00:02 00:22 01:00 01:21 White Blood Count 7.1 Red Blood Count 4.24 Hemoglobin 12.8 Hematocrit 38.6 Mean Corpuscular Volume 91.1 Mean Corpuscular Hemoglobin 30.3 Mean Corpuscular Hemoglobin 33.2 Concent Red Cell Distribution Width 13.2 Platelet Count 327 Mean Platelet Volume 7.2 Neutrophils (%) (Auto) 51.7 Lymphocytes (%) (Auto) 39.2 Monocytes (%) (Auto) 6.9 Eosinophils (%) (Auto) 1.3 Basophils (%) (Auto) 0.9 Neutrophils # (Auto) 3.7 Lymphocytes # (Auto) 2.8 Monocytes # (Auto) 0.5 Eosinophils # (Auto) 0.1 Basophils # (Auto) 0.1 CBC Comment DIFF FINAL Differential Comment Prothrombin Time 10.0 Prothromb Time International 0.9 Ratio Activated Partial 25.3 Thromboplast Time Fibrinogen 385 Bedside Hemoglobin 14.3 Bedside Hematocrit 42.0 Bedside Sodium 137 Bedside Potassium 3.8 Bedside Chloride 95 Bedside Blood Urea Nitrogen 5 Bedside Creatinine 0.8 Bedside Glucose 168 Total Creatine Kinase 59 Troponin I LESS THAN 0.02 Thyroid Stimulating Hormone 1.600 3rd Gen Blood Type O POSITIVE Antibody Screen NEGATIVE Blood Bank Comment Urine Color YELLOW Urine Turbidity CLEAR Urine pH 7.0 Urine Specific [place] 1.007 Urine Protein NEG Urine Glucose (UA) NEG Urine Ketones NEG Urine Occult Blood NEG Urine Nitrite NEG Urine Bilirubin NEG Urine Urobilinogen LESS THAN 2.0 Urine Leukocyte Esterase SMALL Urine RBC 1 Urine WBC 14 Urine Squamous Epithelial <1 Cells Microscopic Urinalysis Comment Urine Opiates Screen NEG Urine Barbiturates Screen NEG Urine Amphetamines Screen NEG Urine Benzodiazepines Screen NEG Urine Cocaine Screen NEG Urine Cannabinoids Screen NEG Result Diagram: 04/24/16 0002 Imaging Last 24 hours Impressions Neck CTA 04/24/16 0000 Signed Impressions: Service Date/Time: Sunday, April 24, 2016 00:33 - CONCLUSION: 50%% stenosis at the origin of the left common carotid artery from the arch. Not mentioned above is multinodular goiter with largest nodule on the right measuring 1.3 cm in size. Avni Hurst MD Head CTA 04/24/16 0000 Signed Impressions: Service Date/Time: Sunday, April 24, 2016 00:33 - CONCLUSION: Slight atherosclerotic changes of distal branches bilaterally, otherwise unremarkable. Avni Hurst MD Head CT 04/24/16 0000 Signed Impressions: Service Date/Time: Sunday, April 24, 2016 00:22 - CONCLUSION: 1. No change in right posterior fossa CPA mass possibly a large meningioma. 2. Chronic and small vessel ischemic changes without any evidence for acute hemorrhage or mass effect. Avni Hurst MD Septic Shock Reassessment Heart: Irregular Peripheral Pulses: Bounding Right Radial Bounding Left Radial Assessment and Plan Problem List: (1) Diabetes ICD Code: E11.9 Status: Acute (2) CVA (cerebral vascular accident) ICD Code: I63.9 Status: Acute (3) Atrial fibrillation with RVR ICD Code: I48.91 Status: Acute (4) Dehydration ICD Code: E86.0 Status: Acute Assessment and Plan CVA - wake-up stroke - not a candidate for TpA - MRI Brain - ASA, Statin - Further per neurology Atrial Fibrillation - rapid A. Fib with RVR - Amiodarone bolus followed by gtt - Echocardiogram - TSH level - Electrolytes - Troponins to r/o ACS DM - ISS Dehydration - i.v. fluid resuscitation Nutrition - NPO - speech eval DVT/Gi prophylaxis - Teds/SCDs/Subq Heparin/Pepcid Critical Care: The total critical care time was 35 minutes. Time to perform other separately billable procedures was not included in the critical care time. Problem Qualifiers (1) CVA (cerebral vascular accident): Qualified Code: I63.9 - Cerebrovascular accident (CVA), unspecified mechanism Stephen Brown MD Apr 24, 2016 05:56
[2016-04-24] MEDS: INSULIN ASPART SUPPLEMENTAL SCALE SQ SCH ×2 (07:00→11:00)
[2016-04-24] MEDS ORDERED: FAMOTIDINE 20 MG/2 ML VIAL IV PUSH SCH (08:00)
--- NOTE | 2016-04-24 08:34 | PD.CONS ---
History of Present Illness Service Neurology Consult Requested By er Reason for Consult stroke Primary Care Physician Veto Ruth M.D. History of Present Illness 81-year-old female woke up with babbling speech, weakness on the right side and difficulty ambulating. onset unknown. er md d/w with neuro overnight. not a tpa candidate. not on any OAC's. has afiv with rvr. ct brain shows possible posterior mass, apparently known by son and seen by nsx , no ich. they are following this, not a current problem. has had gait imbalance for some time. cta carotids- left ica 50%, multinodular goiter (this needs to be followed by their medical doctor outpatient). glucose 168. given iv benadryl 50mg and ativan 2mg overnight and is now somnolent. unable to give any hx. Review of Systems ROS Unable to obtain due to altered mental state Past Family Social History Allergies: Coded Allergies: Ativan (Verified Allergy, Severe, 04/24/16) Cardizem (Verified Allergy, Severe, 03/01/16) Ceftin (Verified Allergy, Severe, Rash, 03/01/16) Tequin (Verified Allergy, Severe, 04/24/16) Codeine (Verified Allergy, Intermediate, Rash, 03/01/16) Lasix (Verified Allergy, Intermediate, Rash, 03/01/16) Librium (Verified Allergy, Intermediate, Rash, 03/01/16) Lomotil (Verified Allergy, Intermediate, Rash, 03/01/16) Norvasc (Verified Allergy, Intermediate, Rash, 03/01/16) Persantine (Verified Allergy, Intermediate, Rash, 03/01/16) Stadol (Verified Allergy, Intermediate, Rash, 03/01/16) Sulfa (Verified Allergy, Intermediate, Rash, 03/01/16) Zithromax (Verified Allergy, Intermediate, Rash, 03/01/16) Augmentin (Verified Allergy, Unknown, Rash, 03/01/16) Cardura (Verified Allergy, Unknown, Rash, 03/01/16) Pravachol (Verified Allergy, Unknown, Rash, 03/01/16) Past Medical History Diabetes Intermittent problems with her memory, gait d/o Past Surgical History Partial hysterectomy Appendectomy Family History Patient's mother from complication of strokes. Social History No alcohol, tobacco, or illicit drug use. Review of Systems All other ROS: Unable to obtain Past Family Social History Allergies: Coded Allergies: Ativan (Verified Allergy, Severe, 04/24/16) Cardizem (Verified Allergy, Severe, 03/01/16) Ceftin (Verified Allergy, Severe, Rash, 03/01/16) Lopressor (Verified Allergy, Severe, 04/24/16) lip swelling Tequin (Verified Allergy, Severe, 04/24/16) Codeine (Verified Allergy, Intermediate, Rash, 03/01/16) Lasix (Verified Allergy, Intermediate, Rash, 03/01/16) Librium (Verified Allergy, Intermediate, Rash, 03/01/16) Lomotil (Verified Allergy, Intermediate, Rash, 03/01/16) Norvasc (Verified Allergy, Intermediate, Rash, 03/01/16) Persantine (Verified Allergy, Intermediate, Rash, 03/01/16) Stadol (Verified Allergy, Intermediate, Rash, 03/01/16) Sulfa (Verified Allergy, Intermediate, Rash, 03/01/16) Zithromax (Verified Allergy, Intermediate, Rash, 03/01/16) Augmentin (Verified Allergy, Unknown, Rash, 03/01/16) Cardura (Verified Allergy, Unknown, Rash, 03/01/16) Pravachol (Verified Allergy, Unknown, Rash, 03/01/16) Active Ordered Medications Current Medications Medications (Trade) Dose Ordered Sig/Naomie Route Start Time Stop Time Status Last Admin (Brevibloc Drip Inj Premix) 250 ml @ 0 mls/hr TITRATE IV 04/24/16 01:00 04/24/16 02:12 (NS Flush) 2 ml BID IVF 04/24/16 09:00 IV Flush 2 ml 2 ml UNSCH PRN IVF 04/24/16 02:45 (NS 1000 ml Inj) 1,000 ml @ 70 mls/hr [id number] IV 04/24/16 02:38 04/24/16 02:38 (Trandate Inj) 10 mg Q2H PRN IV 04/24/16 02:45 04/24/16 04:02 (D50w (Vial) Inj) 25 ml UNSCH PRN IV PUSH 04/24/16 02:45 Glucagon 1 mg 1 mg UNSCH PRN IM/SQ 04/24/16 02:45 (Cordarone Inj/ D5W ([place]) Inj) 250 ml @ 0 mls/hr CONTINUOUS IV 04/24/16 04:30 04/24/16 06:08 Haloperidol Lactate 1 mg 1 mg Q6H PRN IM 04/24/16 05:15 04/24/16 05:14 (NS 1000 ml Inj) 1,000 ml @ 125 mls/hr Q8H IV 04/24/16 06:15 04/24/16 06:23 (Heparin Inj) 5,000 units Q12HR SQ 04/24/16 09:00 (Pepcid Inj) 20 mg Q12H IV PUSH 04/24/16 08:00 Exam I&O / VS 04/23/16 04/23/16 04/24/16 15:00 23:00 07:00 Output Total 1400 ml Balance -1400 ml Output Urine Total 1400 ml # Voids 0 Vital Signs Date Time Temp Pulse Resp B/P Pulse Ox O2 Delivery O2 Flow Rate FiO2 04/24/16 08:00 78 18 89/53 100 Room Air 04/24/16 07:20 100 Room Air 04/24/16 07:00 74 16 89/56 100 Room Air 04/24/16 06:43 75 18 129/65 100 Room Air 04/24/16 06:25 80 16 118/55 100 Nasal Cannula 2 04/24/16 05:57 71 16 84/48 99 Nasal Cannula 2 04/24/16 05:53 74 16 78/46 99 Nasal Cannula 2 04/24/16 05:00 106 18 185/99 99 Nasal Cannula 2 04/24/16 04:06 141 18 165/95 99 Room Air 04/24/16 03:51 99 Nasal Cannula 3.00 04/24/16 03:02 120 20 178/90 99 Nasal Cannula 2 04/24/16 02:24 113 22 159/80 99 Room Air 04/24/16 02:19 121 22 177/86 99 Nasal Cannula 2 04/24/16 02:14 128 18 182/110 99 Nasal Cannula 2 04/24/16 02:00 147 22 227/128 98 Nasal Cannula 2 04/24/16 01:11 96 18 138/62 97 Room Air 04/24/16 01:07 98 18 177/97 96 Room Air 04/24/16 00:40 146 18 185/99 97 Room Air 04/24/16 00:30 138 18 185/75 99 Room Air 04/24/16 00:20 127 20 200/100 99 Room Air 04/24/16 00:16 97 Room Air 04/24/16 00:16 97.8 123 22 180/80 96 04/24/16 00:16 97 Nasal Cannula Exam Comments somnolent, minimally opens eye to verbal or tactile, not following, non-verbal. ou 2mm sluggish, head tilt to right with mild gaze to right, minimal flexion in ue but does withdraws trinity le, planter flexor response, further sensory/ cerebellar/gait unable to be completed. Review/Management Diagnosis/Plan: (1) Acute embolic stroke Plan: left mca stroke by hx; exam limited at present 2/2 somnolence probably cardioembolic left carotid showing 50% stenosis; also a possibility recs eeg mri brain, echo isc; needs close neuro checks check abg ivf- running hypotensive- not good for ischemic penumbra labs aspirin rectally for now p.t./s.t. d/w pt's son (2) Acute encephalopathy Plan: somnolent, likely 2/2 ativan/benadryl refrain from using these medications (3) Posterior fossa tumor Plan: known to family and followed by nsx (4) Multinodular goiter Plan: per medical (5) Atrial fibrillation with RVR Plan: per medical given Glenn Arce MD Apr 24, 2016 08:34
[2016-04-24] MEDS ORDERED: SODIUM CHLORIDE 0.9% FLUSH 5 ML FLUSH IVF SCH (09:00)
[2016-04-24] MEDS ORDERED: HEPARIN SODIUM - SQ 10,000 UNITS/ML VIAL SQ SCH (09:00)
[2016-04-24] MEDS ORDERED: GADODIAMIDE PF 287 MG/ML 10 ML VIAL (for RAD MRI) IV ONE (09:42)
--- NOTE | 2016-04-24 10:03 | RADRPT ---
EXAM DATE/TIME: 04/24/2016 09:42 [facility] COMPARISON: CHEST SINGLE AP, March 01, 2016, 7:26. INDICATIONS : Cardiomyopathy, short of breath MEDICAL HISTORY : A-fib, stroke alert SURGICAL HISTORY : None. ENCOUNTER: Subsequent ACUITY: 1 day PAIN SCORE: 0/10 LOCATION: Bilateral chest FINDINGS: A single view of the chest demonstrates the lungs to be symmetrically, but under aerated without evid ence of mass, infiltrate or effusion. Heart size is upper limits of normal and well compensated. Athe rosclerotic calcification of the aortic arch. Osseous structures are intact. Also noted is atheroscl erotic calcification in the region of the carotid arteries bilaterally. CONCLUSION: Hypoinflation with no acute cardiopulmonary process. Sixto Sepulveda MD on April 24, 2016 at 9:59 Board Certified Radiologist. This report was verified electronically.
--- NOTE | 2016-04-24 10:07 | RADRPT ---
EXAM DATE/TIME: 04/24/2016 09:07 [facility] COMPARISON: CT BRAIN W/O CONTRAST, March 01, 2016, 7:35. INDICATIONS: Right sided weakness. CONTRAST: 9 cc Omniscan (gadodiamide) IV MEDICAL HISTORY: Stroke Diabetes mellitus type 2. Dementia. SURGICAL HISTORY: Carotid endarterectomy. ENCOUNTER: Initial ACUITY: 1 day PAIN SCORE: Nonresponsive. LOCATION: Cranial TECHNIQUE: Multiplanar, multisequence MRI of the brain was performed both prior to and following the administrat ion of paramagnetic contrast. FINDINGS: There is no restricted diffusion evident. There is a large mass arising in the right CP angle extending into the IAC that causing significant c ompression on the brain stem with effacement of the fourth ventricle. Given its location this is relatively stable and unchanged. Associated with marked periventricular white matter changes. Supratentorial ventricles are of normal size. This does show intense contrast enhancement. 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 Brandon Garcia MD FACR on April 24, 2016 at 9:54 Board Certified Radiologist. This report was verified electronically.
[2016-04-24 10:08] LABS: BLOOD GAS BASE EXCESS -1.7 mmol/L (-2-2); BLOOD GAS CARBOXYHEMOGLOBIN 1.5 % (0-4); BLOOD GAS HCO3 23 mmol/L (22-26); BLOOD GAS METHEMOGLOBIN 1.9 % (0-2); BLOOD GAS O2 HGB SATURATION 89 % (90-100); BLOOD GAS OXYGEN CONTENT 15.4 Vol % (12.0-20.0); BLOOD GAS PCO2 45 mmHg (38-42); BLOOD GAS PO2 64 mmHG (61-120); BLOOD GAS TOTAL HGB 12.4 G/DL (12.0-16.0); TEMP CORR TO 98.6
[2016-04-24 10:10] LABS: CRITICAL VALUE YES; NUMBER OF ARTERIAL PUNCTURES 1; OXYGEN DEVICE room air
[2016-04-24 10:11] LABS: DRAW SITE LT RADIAL; STAT YES; ULNAR PULSE Y
[2016-04-24] MEDS ORDERED: DEXAMETHASONE SOD PHOS 4 MG/ML VIAL IV PUSH SCH (12:00)
--- NOTE | 2016-04-24 12:37 | RADRPT ---
EXAM DATE/TIME: 04/24/2016 11:10 [facility] COMPARISON: No previous studies available for comparison. INDICATIONS : Cerebrovascular accident. MEDICAL HISTORY : Dementia. Polyuria. Diabetes. SURGICAL HISTORY : Cholecystectomy. Hysterectomy. Maligancy removed from face. Right carotid en darectomy. ENCOUNTER: Initial ACUITY: 1 day PAIN SCORE: Nonresponsive. LOCATION: Bilateral neck PEAK SYSTOLIC VELOCITIES (cm/sec): ICA/CCA RATIO: Right: 1.2 Left: 1.4 ICA: Right: 94 Left: 99 CCA: Right: 80 Left: 71 ECA: Right: 131 Left: 83 VERTEBRAL: Right: 61 antegrade Left: 36 antegrade Elevated flow velocities and ICA/CCA ratios have been found to correlate with increased degrees of vessel stenosis, calculated as percentage of diameter relative to a normal segment of distal ICA/CCA FINDINGS: RIGHT CAROTID: There is no evidence for a hemodynamically significant carotid stenosis. Minimal int imal hyperplasia is present with scattered calcific plaque. LEFT CAROTID: There is no evidence for a hemodynamically significant carotid stenosis. Minimal inti mal hyperplasia is present with scattered calcific plaque. VERTEBRAL ARTERIES: Flow is antegrade in both vertebral arteries. MISCELLANEOUS: There are no ancillary masses or adenopathy. CONCLUSION: Negative examination for a hemodynamically significant carotid stenosis. Brandon Garcia MD FACR Board Certified Radiologist. This report was verified electronically.
[2016-04-24] MEDS ORDERED: CYANOCOBALAMIN 1000 MCG/ML VIAL IM ONE (13:00)
--- NOTE | 2016-04-24 17:00 | MG ---
cc: ED HSIEH MD Lab No: [id number] Date: 04/24/2016 Age: 81 Sex: F Race: DATE OF : 1935. HISTORY: 81-year-old with history of mental status changes. DESCRIPTION OF RECORD: Generalized slowing with 3-4 Hz delta activity occurring 20-60 microvolts in generalized fashion. Limited driving with photic stimulation. Moderate amount of myogenic frontal artifact. Single lead EKG showing sinus rhythm, sinus tachy. INTERPRETATION: Moderate encephalopathy. Clinical correlation. MD MARKEL Astorga/ANNE /4:44 PM /4:56 PM MTDD
--- NOTE | 2016-04-24 18:14 | HHI.DS ---
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 The patient's son report that she woke up with babbling speech, weakness on the right side and difficulty ambulating. On arrival to the emergency room the patient has obvious facial droop, expressive aphasia, right upper and lower extremity drift, unable to answer questions. Patient was given metoprolol and Ativan. I was notified by the nurse that she was having allergic reaction with tongue swelling. She was immediately given Solu-Medrol and Benadryl. On my evaluation, the patient is aphasic, she does not follow commands and appears agitated, able to move the left extremities more so than the right. She has mild tongue swelling. I reviewed the history with the patient's son. The patient has a posterior fossa mass that was diagnosed here 2 months ago and was recommended outpatient follow-up in neurosurgery. The patient's son reports that they did not follow-up as they would not proceed with any neurological surgery. The patient's son reports that she has been living with them over the past 3 months. She has had some falls but otherwise has been mentally sharp. She was able to ambulate short distances. The patient's son reports that she has not been taking any medications for the past few months. MRI of the brain showed large CP angle tumor on the right with significant compression of brainstem and hydrocephalus. I discussed with neurosurgery Dr. Kidd- she recommended transfer to [facility], to neurosurgeon. (Dr. Cayden Yun) CBC/BMP: 04/24/16 0002 Significant Findings Laboratory Tests Test 1/20/17 1/20/17 1/20/17 00:22 01:21 10:05 Bedside Sodium 137 MMOL/L (138-146) Bedside Chloride 95 MMOL/L (98-109) Bedside Blood Urea Nitrogen 5 MG/DL (8-26) Bedside Glucose 168 MG/DL (60-95) Troponin I LESS THAN 0.02 NG/ML (0.02-0.05) Urine Leukocyte Esterase SMALL (NEG) Urine WBC 14 /hpf (0-5) Blood Gas Oxygen Saturation 89 % (90-100) Arterial Blood pH 7.34 (7.380-7.420) Arterial Blood Partial 45 mmHg (38-42) Pressure CO2 Imaging MRI of the brain shows large right CPA mass with significant compression of the brainstem and hydrocephalus PE at Discharge GENERAL: Elderly patient, confused, nonverbal. SKIN: Warm and dry. HEAD: Normocephalic. EYES: No scleral icterus. No injection or drainage. NECK: Supple, trachea midline. No JVD or lymphadenopathy. CARDIOVASCULAR: Tachycardic but sinus rhythm without murmurs, gallops, or rubs. RESPIRATORY: Breath sounds equal bilaterally. No accessory muscle use. GASTROINTESTINAL: Abdomen soft, non-tender, nondistended. MUSCULOSKELETAL: No cyanosis, or edema. BACK: Nontender without obvious deformity. No CVA tenderness. Neuro: Exam is limited due to confusion and recent administration of Benadryl. Slightly withdraws bilateral upper and lower extremities Transfer Summary 81-year-old female brought into the emergency room with concern for stroke. On arrival to the emergency room the patient has obvious facial droop, expressive aphasia, right upper and lower extremity drift, unable to answer questions. Patient was given metoprolol and Ativan. I was notified by the nurse that she was having allergic reaction with tongue swelling. She was immediately given Solu-Medrol and Benadryl. On my evaluation, the patient is aphasic, she does not follow commands and appears agitated, able to move the left extremities more so than the right. She has mild tongue swelling. The patient has a posterior fossa mass that was diagnosed here 2 months ago and was recommended outpatient follow-up in neurosurgery. MRI of the brain showed large CP angle tumor on the right with significant compression of brainstem and hydrocephalus. There was no acute stroke reported. I discussed with neurosurgery Dr. Kidd - she recommended transfer to [facility], to neurosurgeon. (Dr. Cayden Yun). Patient had atrial fibrillation for which she was started on amiodarone infusion. Converted to sinus rhythm on amiodarone was stopped. Patient was accepted at [facility] and was transferred by air ambulance Hospital Course See transfer summary Pt Condition on Discharge: Guarded Discharge Disposition: Disch to Another Hospital Discharge Instructions DIET: Follow Instructions for: Nothing By Mouth Activities you can perform: Continue Bedrest Spencer Richey MD Apr 24, 2016 18:14
--- NOTE | 2016-04-24 22:43 | EKG ---
Date Performed: 04/24/2016 Time Performed: 00:47:17 PTAGE: 81 years EKG: Irregular supraventricular ventricular tachycardia Possible ATRIAL FIBRILLATION WITH RAPID VENTRICULAR RESPONSE MODERATE ST DEPRESSION ABNORMAL ECG PREVIOUS TRACING : 03/01/2016 06.37 DOCTOR: Kaleigh Salgado Interpretating Date/Time 04/24/2016 22:41:30
[2016-04-24 22:48] LABS: HEMOGLOBIN A1a 1.2 %; HEMOGLOBIN A1b 2.1 %; HEMOGLOBIN Ao 81.9 %
--- NOTE | 2016-04-25 14:33 | EC ---
Study Study Date:04/24/2016 STUDY CONCLUSIONS SUMMARY - Left ventricle: The cavity size was normal. Systolic function was normal. The estimated ejection fraction was in the range of 65% to 70%. Doppler parameters are consistent with abnormal left ventricular relaxation (grade 1 diastolic dysfunction). - Ventricular septum: The outflow septum had a sigmoid appearance. - Tricuspid valve: Mild regurgitation. If LV function is below 40, please consider prescribing an ACEI or ARB or document rationale for non-use. PROCEDURE DATA STUDY STATUS: Elective. Procedure: Transthoracic echocardiography. Image quality was good. Scanning was performed from the parasternal, apical, and subcostal acoustic windows. Study completion: The patient tolerated the procedure well. Transthoracic echocardiography. M-mode, complete 2D, complete spectral Doppler, and color Doppler. Patient status: Inpatient. CARDIAC ANATOMY LEFT VENTRICLE: The cavity size was normal. There was no hypertrophy. Systolic function was normal. The estimated ejection fraction was in the range of 65% to 70%. Doppler parameters are consistent with abnormal left ventricular relaxation (grade 1 diastolic dysfunction). AORTIC VALVE: The valve appears to be grossly normal. Probably trileaflet. Doppler: There was no stenosis. No significant regurgitation. MITRAL VALVE: The valve appears to be grossly normal. Doppler: There was no evidence for stenosis. Trace to mild regurgitation. Peak gradient: 2mm Hg (D). VENTRICULAR SEPTUM: The outflow septum had a sigmoid appearance. PULMONIC VALVE: Not well visualized. TRICUSPID VALVE: The valve appears to be grossly normal. Doppler: There was no evidence for stenosis. Mild regurgitation. PERICARDIUM: There was no pericardial effusion. BASIC MEASUREMENTS ADULT Normal Left ventricle LV internal dimension, ED, chordal level, *35.1 mm 43-52 PLAX LV posterior wall thickness, ED 6.23 mm IVS/LVPW ratio, ED 1.21 <1.3 Ventricular septum Septal thickness, ED 7.53 mm Left atrium Anterior-posterior dimension 36 mm Right ventricle RV internal dimension, ED, PLAX *17.7 mm 19-38 DOPPLER MEASUREMENTS ADULT Normal Mitral valve Peak E-wave velocity 72.3 cm/s Peak A-wave velocity 127 cm/s Peak gradient, D 2 mm Hg Peak E/A ratio 0.6 Tricuspid valve Regurgitant peak velocity 165 cm/s Peak RV-RA gradient, S 11 mm Hg Maximal regurgitant velocity 165 cm/s LEGEND: Mean values are shown as u=mean value. Asterisk (*) yee values outside specified normal range. Prepared and signed by Tee Ayoub [id number]
== END 2016-04-24 16:55 | disposition short-term general hospital (02) | DRG 54 ==
LOC: NEPC 00:10 → NEDA 01:32 → NEDH 06:41
PROVIDERS: ADMIT Family Medicine; ATTEND Internal Medicine Critical Care Medicine
DX: D49.6 Neoplasm of unspecified behavior of brain (principal); G93.5 Compression of brain; G93.40 Encephalopathy, unspecified; G91.9 Hydrocephalus, unspecified; I48.91 Unspecified atrial fibrillation; E11.9 Type 2 diabetes mellitus without complications; I47.1 Supraventricular tachycardia; R47.01 Aphasia; E04.2 Nontoxic multinodular goiter; E86.0 Dehydration; R29.810 Facial weakness; Z85.9 Personal history of malignant neoplasm, unspecified; Z88.1 Allergy status to other antibiotic agents; Z88.5 Allergy status to narcotic agent; Z88.8 Allergy status to other drugs, medicaments and biological substances; Z88.2 Allergy status to sulfonamides; Z86.73 Personal history of transient ischemic attack (TIA), and cerebral infarction without residual deficits
CPT/HCPCS: 36600; 70450; 70496; 70498; 70553; 71010; 80307; 81001; 82435; 82550; 82565; 82607; 82805; 82947; 83036; 84132; 84295; 84443; 84484; 84520; 85025; 85384; 85610; 85730; 86850; 86900; 86901; 93005; 93306; 93880; 95819; 96374; A9579; J0171; J0282; J1100; J1200; J1630; J1644; J2060; J2930; J7030; J7060; Q9967